=== PATIENT | female | born 1965 | race Caucasian/White ===

== ENCOUNTER 2024-09-04 18:35 | Emergency (ER) | payer OTHER, SELFPAY ==
[2024-09-04 18:46] VITALS: BP 156/80; PULSE 82; TEMP 36.8; O2SAT 98; BMI 25.8
[2024-09-04 18:58] VITALS: O2SAT 98
--- NOTE | 2024-09-04 19:03 | ED_ITS ---
HPI - URI/Sore Throat General Chief Complaint: Upper Respiratory Infection Stated Complaint: COVID+ on 08/30/24 Time Seen by Provider: 09/04/24 18:56 Source: patient History of Present Illness HPI Narrative: Patient is a 58-year-old female who presents to the emergency department with concern that she may have pneumonia. She was tested positive for COVID 4 days ago. She states she is coughing yellow sputum up. She denies fevers or vomiting. She has not had any hemoptysis. She states she had pneumonia 2 months ago and is concerned that she may have it again. She is from [facility] locally. She has not been started on any medications. Related Data Previous Rx's ?Medication ?Instructions ?Recorded albuterol sulfate 90 mcg/actuation 2 inh inhalation Q4H PRN shortness 09/04/24 aerosol inhaler of breath or wheezing #8.5 grams dexamethasone 4 mg tablet 4 mg PO BID 5 days #10 tabs 09/04/24 Allergies Allergy/AdvReac Type Severity Reaction Status Date / Time No Known Drug Allergies Allergy Verified 09/04/24 18:51 Review of Systems ROS Constitutional Denies: fever or chills Ears, nose, mouth, and throat Reports: nasal congestion; Denies: throat pain Cardiovascular Denies: chest pain Respiratory Reports: cough and change in phlegm color; Denies: shortness of breath Gastrointestinal Denies: nausea or vomiting Integumentary/Breast Denies: rash Hematologic/Lymphatic Denies: easy bruising or easy bleeding Exam Narrative Exam Narrative: Gen.: Awake, alert, in no distress Head: Normocephalic, atraumatic ENT: Moist mucous membranes Respiratory: No respiratory distress, lungs clear bilaterally, speaks in full sentences Cardio: Regular rate and rhythm Extremities: Moves extremities equally Psych: Normal mood and affect Neuro: No focal neuro deficit Skin: Warm, dry, intact Constitutional Vital Signs, click to edit/add: Last Vital Signs Temp 98.2 F 09/04/24 18:46 Pulse 82 09/04/24 18:46 Resp 16 09/04/24 18:46 BP 156/80 H 09/04/24 18:46 Pulse Ox 98 09/04/24 18:58 O2 Del Method Room Air 09/04/24 18:58 Course Vital Signs Vital signs: Vital Signs Temperature 98.2 F 09/04/24 18:46 Pulse Rate 82 09/04/24 18:46 Respiratory Rate 16 09/04/24 18:46 Blood Pressure 156/80 H 09/04/24 18:46 Pulse Oximetry 98 09/04/24 18:46 Oxygen Delivery Method Room Air 09/04/24 18:46 Temperature 98.2 F 09/04/24 18:46 Pulse Rate 82 09/04/24 18:46 Respiratory Rate 16 09/04/24 18:46 Blood Pressure 156/80 H 09/04/24 18:46 Pulse Oximetry 98 09/04/24 18:58 Oxygen Delivery Method Room Air 09/04/24 18:58 MDM - URI/Sore Throat MDM Narrative Medical decision making narrative: Chest x-ray reviewed by the radiologist with no evidence of acute process. Patient given education and reassurance. She has stable vital signs and is in no respiratory distress. Albuterol inhaler and dexamethasone given for home. Follow-up with PCP and return to the ER if symptoms change or worsen SUPERVISED APC VISIT, PHYSICIAN ATTESTATION: Based on the medical record the care appears appropriate. ? Medical Records Attestation: I reviewed the patient's medical records. Imaging Data Chest x-ray: Attestation: I have reviewed the pertinent imaging results. Discharge Plan Discharge Chief Complaint: Upper Respiratory Infection Clinical Impression: COVID-19 Patient Disposition: Home, Self-Care Time of Disposition Decision: 19:31 Condition: Good Prescriptions / Home Meds: New dexamethasone 4 mg tablet 4 mg PO BID 5 Days Qty: 10 0RF albuterol sulfate 90 mcg/actuation HFA aerosol inhaler 2 inh inhalation Q4H PRN (Reason: shortness of breath or wheezing) Qty: 8.5 0RF Print Language: Pashto Instructions: How to Recover from COVID-19 at Home (ED) Referrals: Physician,Non-Staff, MD [Primary Care Provider] - 1 week
== END 2024-09-04 19:40 | disposition home or self-care (01) ==
PROVIDERS: Emergency Provider Emergency Medicine
DX: U07.1 COVID-19 (principal); Z87.01 Personal history of pneumonia (recurrent)
CPT/HCPCS: 71045; 99283

== ENCOUNTER 2024-10-06 17:12 | Emergency (ER) | payer OTHER, SELFPAY ==
[2024-10-06 17:16] VITALS: BP 174/99; PULSE 89; TEMP 36.6; O2SAT 98; BMI 26.6
[2024-10-06 17:40] LABS: Influenza Virus A Antigen Negative; Influenza Virus B Antigen Negative; Internal Control Within Normal Limits
--- NOTE | 2024-10-06 18:04 | ED.GENADUL1 ---
HPI HPI - General Adult General Chief complaint: Upper Respiratory Infection Stated complaint: WEAK, FEVER, CHEST CONGESTION Time Seen by Provider: 10/06/24 17:20 Source: patient Mode of arrival: walk-in Limitations: no limitations History of Present Illness HPI narrative: 58-year-old female presents here with chief complaint of cough congestion and fevers. Patient subjectively was had a fever greater than 103 at home been taking Tylenol and Motrin for the last 2 days. She said she was exposed to someone who has been sick as well. She is prone to pneumonia. Patient does not appear toxic lung sounds are diminished bilaterally. She is not currently febrile at this time but states she took ibuprofen earlier today. Related Data Previous Rx's ?Medication ?Instructions ?Recorded albuterol sulfate 90 mcg/actuation 2 inh inhalation Q4H PRN shortness 09/04/24 aerosol inhaler of breath or wheezing #8.5 grams dexamethasone 4 mg tablet 4 mg PO BID 5 days #10 tabs 09/04/24 albuterol sulfate 90 mcg/actuation 2 inh inhalation Q6H PRN shortness 10/06/24 breath activated powder inhaler of breath or wheezing #1 ea azithromycin 250 mg tablet See Rx Instructions PO .COMPLEX #6 10/06/24 (Zithromax Z-Edgardo) tabs cephalexin 500 mg capsule 500 mg PO BID 10 days #20 caps 10/06/24 Allergies Allergy/AdvReac Type Severity Reaction Status Date / Time No Known Drug Allergies Allergy Verified 10/06/24 17:16 Review of Systems ROS Status of ROS 10 or more systems reviewed and unremarkable except as noted in history and below PFSH PFS Social History Little interest or pleasure in doing things: not at all Feeling down, depressed, or hopeless: not at all Exam Narrative Exam Narrative: All Systems are negative except as noted/marked.All systems reviewed and otherwise negative Nurses note and vital signs reviewed and patient is not hypoxic. General: The patient appears well and in no apparent distress. Patient is resting comfortably on cart. Skin: Warm, dry, no pallor noted. There is no rash noted. Head: Normocephalic, atraumatic Eye: Normal conjunctiva, no drainage, EOMI. PERRL Ears, Nose, Mouth, and Throat: oral mucosa is moist. Nares patent. Mouth without vesicles. Ear canals patent. Tm's without Erythema Cardiovascular: Regular Rate and Rhythm Respiratory: Dry nonproductive cough, patient is in no distress, no accessory muscle use, lungs are clear to auscultation, no wheezing, rales or rhonchi Back: non-tender, no CVA tenderness bilaterally to percussion. GI: Normal bowel sounds, no tenderness to palpation, no masses appreciated. No rebound, guarding, or rigidity noted. Musculoskeletal: The patient has no evidence of calf tenderness, no pitting edema, symmetrical pulses noted bilaterally Neurological: A&O x4, normal speech Psychiatric: Cooperative Constitutional Vital Signs, click to edit/add: Last Vital Signs Temp 97.9 F 10/06/24 17:16 Pulse 89 10/06/24 17:16 Resp 16 10/06/24 17:16 BP 174/99 H 10/06/24 17:16 Pulse Ox 98 10/06/24 17:16 Course Vital Signs Vital signs: Vital Signs Temperature 97.9 F 10/06/24 17:16 Pulse Rate 89 10/06/24 17:16 Respiratory Rate 16 10/06/24 17:16 Blood Pressure 174/99 H 10/06/24 17:16 Pulse Oximetry 98 10/06/24 17:16 Temperature 97.9 F 10/06/24 17:16 Pulse Rate 89 10/06/24 17:16 Respiratory Rate 16 10/06/24 17:16 Blood Pressure 174/99 H 10/06/24 17:16 Pulse Oximetry 98 10/06/24 17:16 Medical Decision Making [facility] Narrative Medical decision making narrative: 58-year-old female presents here with chief complaint of cough congestion and fevers. Patient subjectively was had a fever greater than 103 at home been taking Tylenol and Motrin for the last 2 days. She said she was exposed to someone who has been sick as well. She is prone to pneumonia. Patient does not appear toxic lung sounds are diminished bilaterally. She is not currently febrile at this time but states she took ibuprofen earlier today. Patient presented here chief complaint of fever chills body aches not feeling well. X-ray shows a posterior infiltrate. She has had subjective fevers at home. Patient does have a history of smoking. She been prone to pneumonia in the past. Patient will did have a influenza swab here today which is negative. She will be started on Keflex and Zithromax. She will follow-up primary care physician. Patient will also be given a prescription for an inhaler. She was given a DuoNeb breathing treatment while here in the emergency room. Discharged home stable condition she is not hypoxic or febrile. Return to the emergency room were discussed including increased fevers or difficulty breathing. Differential Diagnosis Differential Diagnosis: uri, pneumonia Medical Records Medical records reviewed: Yes I reviewed the patient's medical records Lab Data Lab results reviewed: Yes I reviewed the patient's lab results Labs: Lab Results 10/06/24 Range/Units 17:25 Influenza Type A Ag Negative Influenza Type B Ag Negative Imaging Data Chest x-ray: Attestation: I have reviewed the pertinent imaging results. My impression: infiltrate left lower Discharge Plan Discharge Chief Complaint: Upper Respiratory Infection Clinical Impression: Pneumonia Patient Disposition: Home, Self-Care Time of Disposition Decision: 18:00 Condition: Good Prescriptions / Home Meds: New cephalexin 500 mg capsule 500 mg PO BID 10 Days Qty: 20 0RF azithromycin [Zithromax Z-Edgardo] 250 mg tablet See Rx Instructions .ROUTE .COMPLEX Qty: 6 0RF Rx Instructions: For 250 mg dose pack: take 500 mg today (day 1), then 250 mg for 4 days (days 2-5) albuterol sulfate 90 mcg/actuation aerosol powdr breath activated 2 inh inhalation Q6H PRN (Reason: shortness of breath or wheezing) Qty: 1 0RF No Action dexamethasone 4 mg tablet 4 mg PO BID 5 Days Qty: 10 0RF albuterol sulfate 90 mcg/actuation HFA aerosol inhaler 2 inh inhalation Q4H PRN (Reason: shortness of breath or wheezing) Qty: 8.5 0RF Print Language: [place] Instructions: Community Acquired Pneumonia (ED) Referrals: Physician,Non-Staff, MD [Primary Care Provider] - 1 week
[2024-10-06 18:08] VITALS: PULSE 89; O2SAT 94
[2024-10-06] MEDS: IPRATROPIUM/ALBUTEROL SULFATE 3 ML AMPUL.NEB IH (18:08)
== END 2024-10-06 18:31 | disposition home or self-care (01) ==
PROVIDERS: Physician Assistant; Emergency Provider Emergency Medicine
DX: J18.9 Pneumonia, unspecified organism (principal); Z87.891 Personal history of nicotine dependence; Z87.01 Personal history of pneumonia (recurrent)
CPT/HCPCS: 71046; 87804; 94640; 99284